=== PATIENT | male | born 1995 | race African-American/Black ===

== ENCOUNTER 2020-09-30 11:47 | Emergency (ER) | payer BC ==
[~2020-09-30] VITALS: Ht 198.1 cm; Wt 97.5 kg
--- NOTE | 2020-09-30 12:10 | NUR ---
R SIDED FACIAL PAIN, UNABLE TO CHEW X 3 DAYS. L KNEE PAIN X YESTERDAY S/P BASKETBALL INJURY. RATES PAINS 5/10. IN ROOM AIR AND DENIES SOB. RESPIRATION REGULAR AND UNLABORED. WILL CONTINUE TO MONITOR THE PATIENT.
[2020-09-30] MEDS ORDERED: IBUPROFEN 600 MG TABLET ONE (12:29)
[2020-09-30] MEDS ORDERED: IBUPROFEN 600 MG TABLET PO ONE (12:30)
[2020-09-30] MEDS ORDERED: IBUP-1955 PO (13:40)
[2020-09-30 13:50] VITALS: BP 131/72
--- NOTE | 2020-09-30 13:50 | NUR ---
Patient discharged to home in stable condition. Written and verbal after care instructions given. Patient verbalizes understanding of instruction.
== END 2020-09-30 13:50 | disposition home or self-care (01) ==
LOC: ER 11:51
DX: S83.8X2A Sprain of other specified parts of left knee, initial encounter (principal); S03.41XA Sprain of jaw, right side, initial encounter; X58.XXXA Exposure to other specified factors, initial encounter; Y93.67 Activity, basketball; Y92.310 Basketball court as the place of occurrence of the external cause; Y99.8 Other external cause status
CPT/HCPCS: 70450-TC; 70486-TC